=== PATIENT | female | born 1945 | race Caucasian/White ===

== ENCOUNTER 2020-03-07 14:09 | Emergency (ER) | payer MEDICARE ==
[~2020-03-07] VITALS: Ht 157.5 cm; Wt 74.8 kg
[~2020-03-07 14:09] MED LIST: ALBU90OI INH; ALEN70 PO; ASPI81CH PO; CITA20 PO; GABA300 PO; LEVSOD100 PO; LISI5 PO; METF500 PO; METO100ER PO; OMEPRAZOLE MAGN20 MG PO; ONDA8ODT MM; OXYB5 PO; PRAV20 PO; TRAM50 PO; VITAMIN D5000 UNI1 PO
[2020-03-07] MEDS ORDERED: SERT50 PO (14:43)
[2020-03-07] MEDS ORDERED: ATOR40TA PO (14:43)
[2020-03-07] MEDS ORDERED: SYNTHROID137 MCG PO (14:44)
[2020-03-07] MEDS ORDERED: LOSA50 PO (14:44)
[2020-03-07] MEDS ORDERED: METFORMIN HCL500 M2 PO (14:44)
[2020-03-07] MEDS ORDERED: FLUT.05NI (14:45)
[2020-03-07] MEDS ORDERED: OMEPRAZOLE20 MG PO (14:45)
[2020-03-07] MEDS ORDERED: ISOSORBIDE MONO30 MG PO (14:46)
== END 2020-03-07 16:58 | disposition home or self-care (01) ==
LOC: ER 14:09
DX: S00.11XA Contusion of right eyelid and periocular area, initial encounter (principal); E11.9 Type 2 diabetes mellitus without complications; I10 Essential (primary) hypertension; J45.909 Unspecified asthma, uncomplicated; K21.9 Gastro-esophageal reflux disease without esophagitis; Z88.6 Allergy status to analgesic agent; Z88.5 Allergy status to narcotic agent; Z79.899 Other long term (current) drug therapy; Z79.84 Long term (current) use of oral hypoglycemic drugs; Z79.82 Long term (current) use of aspirin; Y04.2XXA Assault by strike against or bumped into by another person, initial encounter
CPT/HCPCS: 70480; 99284-25

== ENCOUNTER → 2021-04-20 | Outpatient (CLI) | payer MEDICARE ==
[~2021-04-20] MED LIST changes: +ATOR40TA PO; +FLUT.05NI; +ISOSORBIDE MONO30 MG PO; +LOSA50 PO; +METFORMIN HCL500 M2 PO; +OMEPRAZOLE20 MG PO; +SERT50 PO; +SYNTHROID137 MCG PO
[2021-04-20 16:36] LABS: BASOPHILS ABSOLUTE AUTO 0.08 K/mm3 (0.00-0.23); BASOPHILS PERCENT AUTO 1 % (0-2); EOSINOPHILS ABSOLUTE AUTO 0.39 K/mm3 (0.00-0.68); EOSINOPHILS PERCENT AUTO 4 % (0-6); Hematocrit 42.4 % (33.0-51.0); Hemoglobin 13.2 g/dL (11.5-16.0); IMMATURE GRAN ABSOLUTE AUTO 0.04 K/mm3 (0.00-0.10); IMMATURE GRAN PERCENT AUTO 0 % (0-1); LYMPHOCYTES ABSOLUTE AUTO 2.86 K/mm3 (0.84-5.20); LYMPHOCYTES PERCENT AUTO 28 % (21-46); MONOCYTES ABSOLUTE AUTO 0.81 K/mm3 (0.16-1.47); MONOCYTES PERCENT AUTO 8 % (4-13); Mean Corpuscular HGB 29.7 pg (26.0-34.0); Mean Corpuscular HGB Conc 31.1 g/dL (31.5-36.5); Mean Corpuscular Volume 96 fL (80-100); Mean Platelet Volume 10.5 fL (9.1-12.4); NEUTROPHILS ABSOLUTE AUTO 6.04 K/mm3 (1.96-9.15); NEUTROPHILS PERCENT AUTO 59 % (41-73); Platelet Count 273 K/mm3 (150-400); RDW Coefficient Variation 15.1 % (11.7-14.2); RDW Standard Deviation 52.9 fL (35.1-46.3); Red Blood Cell Count 4.44 M/mm3 (3.80-5.20); White Blood Cell Count 10.22 K/mm3 (4.00-11.30)
[2021-04-20 17:04] LABS: Albumin, Blood 3.2 g/dL (3.4-5.0); Albumin/Globulin Ratio 0.8 (0.8-1.8); Bilirubin, Total 0.5 mg/dL (0.1-1.0); Bun/Creatinine Ratio 15.5 (12.0-20.0); Creatinine, Blood 1.55 mg/dL (0.40-1.00); Globulin, Blood 4.2 g/dL (2.2-4.0); Potassium, Blood 4.8 mmol/L (3.5-5.5); Total Protein, Blood 7.4 g/dL (6.4-8.2)
[2021-04-20 17:08] LABS: Thyroid Stimulating Hormone 62.5 uIU/mL (0.360-4.800)
== END | disposition home or self-care (01) ==
LOC: LAB SHORT 12:20
PROVIDERS: Family Medicine
DX: C51.9 Malignant neoplasm of vulva, unspecified (principal); E03.9 Hypothyroidism, unspecified; R22.42 Localized swelling, mass and lump, left lower limb; R23.8 Other skin changes
CPT/HCPCS: 80053; 84443; 85025; 87070; 87075; 87205

== ENCOUNTER → 2021-04-28 | Outpatient (CLI) | payer MEDICARE ==
[2021-04-28 19:24] LABS: Bun/Creatinine Ratio 26.9 (12.0-20.0); Calcium, Blood 9.4 mg/dL (8.5-10.1); Creatinine, Blood 1.45 mg/dL (0.40-1.00); Potassium, Blood 4.8 mmol/L (3.5-5.5)
== END ==
LOC: LAB SHORT 17:45
PROVIDERS: Student in an Organized Health Care Education/Training Program
DX: R79.89 Other specified abnormal findings of blood chemistry (principal); R35.0 Frequency of micturition
CPT/HCPCS: 80048; 87086

== ENCOUNTER 2021-04-30 12:32 | Emergency (ER) | payer MEDICARE ==
[~2021-04-30] VITALS: Ht 160 cm; Wt 80.7 kg
== END 2021-04-30 15:35 | disposition home or self-care (01) ==
LOC: ER 12:32
DX: Z47.89 Encounter for other orthopedic aftercare (principal); Z88.5 Allergy status to narcotic agent; Z88.6 Allergy status to analgesic agent; Z79.82 Long term (current) use of aspirin; Z79.899 Other long term (current) drug therapy; E11.9 Type 2 diabetes mellitus without complications; I10 Essential (primary) hypertension; K21.9 Gastro-esophageal reflux disease without esophagitis
CPT/HCPCS: 99282

== ENCOUNTER → 2022-12-07 | Outpatient (CLI) | payer MEDICARE, OTHER | END | disposition home or self-care (01) | LOC: LAB 12:00 → LAB SHORT 12:00 | DX: R30.0 Dysuria (principal) | CPT/HCPCS: 87086 ==

== ENCOUNTER → 2023-12-09 | Outpatient (CLI) | payer MEDICARE, OTHER ==
[2023-12-09 17:44] LABS: Bacterial Vaginosis PCR Negative (NEGATIVE); Candida glabrata-krusei, PCR NOT DETECTED (NOT DETECT)
[2023-12-09 18:25] LABS: Candida Group, PCR DETECTED (NOT DETECT)
[2023-12-12 14:10] LABS: HSV 1 SUBTYPE BY PCR Not Detected; HSV 2 SUBTYPE BY PCR Not Detected; HSV SUBTYPE SOURCE VAGINAL
== END ==
LOC: LAB 14:48 → LAB SHORT 14:48
PROVIDERS: Physician Assistant
DX: R30.0 Dysuria (principal)
CPT/HCPCS: 87077; 87086; 87186; 87481; 87529; 87661; 87801

== ENCOUNTER → 2024-01-30 | Outpatient (CLI) | payer MEDICARE, OTHER ==
[2024-01-30 17:46] LABS: BASOPHILS ABSOLUTE AUTO 0.04 K/mm3 (0.00-0.23); BASOPHILS PERCENT AUTO 1 % (0-2); EOSINOPHILS ABSOLUTE AUTO 0.22 K/mm3 (0.00-0.68); EOSINOPHILS PERCENT AUTO 3 % (0-6); Hematocrit 37.9 % (33.0-51.0); Hemoglobin 11.7 g/dL (11.5-16.0); IMMATURE GRAN ABSOLUTE AUTO 0.02 K/mm3 (0.00-0.10); IMMATURE GRAN PERCENT AUTO 0 % (0-1); LYMPHOCYTES ABSOLUTE AUTO 1.99 K/mm3 (0.84-5.20); LYMPHOCYTES PERCENT AUTO 29 % (21-46); MONOCYTES ABSOLUTE AUTO 0.48 K/mm3 (0.16-1.47); MONOCYTES PERCENT AUTO 7 % (4-13); Mean Corpuscular HGB 29.8 pg (26.0-34.0); Mean Corpuscular HGB Conc 30.9 g/dL (31.5-36.5); Mean Corpuscular Volume 97 fL (80-100); Mean Platelet Volume 10.5 fL (9.1-12.4); NEUTROPHILS ABSOLUTE AUTO 4.06 K/mm3 (1.96-9.15); NEUTROPHILS PERCENT AUTO 60 % (41-73); Platelet Count 187 K/mm3 (150-400); RDW Coefficient Variation 14.3 % (11.7-14.2); RDW Standard Deviation 50.9 fL (35.1-46.3); Red Blood Cell Count 3.92 M/mm3 (3.80-5.20); White Blood Cell Count 6.81 K/mm3 (4.00-11.30)
[2024-01-30 17:50] LABS: Creatinine, Urine Random 57.7 mg/dL (27.00-270.00)
[2024-01-30 17:52] LABS: Microalb/Creat Ratio UR, Rand 68.458 mg/g (0.000-30.000); Microalbumin, Random Urine 39.5 mg/L (0.000-20.000)
[2024-01-30 18:44] LABS: Alanine Aminotransfer (ALT/SGP 26 U/L (12-78); Albumin, Blood 3.6 g/dL (3.4-5.0); Alk Phos 89 U/L (50-136); Anion Gap 11 mmol/L (3-11); Aspartate Aminotrans (AST/SGOT 20 U/L (12-37); Bilirubin, Total 0.3 mg/dL (0.1-1.0); Blood Urea Nitrogen 42 mg/dL (8-24); Bun/Creatinine Ratio 37.8 (12.0-20.0); CHOL/HDL RATIO 2.5; CO2, Blood 25 mmol/L (21-32); Calcium, Blood 9.2 mg/dL (8.5-10.1); Chloride, Blood 112 mmol/L (98-108); Cholesterol 164 mg/dL (50-200); Creatinine, Blood 1.11 mg/dL (0.40-1.00); Globulin, Blood 3.5 g/dL (2.2-4.0); Glomerular Filtration Rate 51 (60-); Glucose, Blood 98 mg/dL (70-99); HDL Cholesterol 66 mg/dL (>39); LDL/HDL RATIO 1.2; Low Density Lipoprotein Chol 77 mg/dL (0-110); Potassium, Blood 4.9 mmol/L (3.5-5.5); Sodium, Blood 143 mmol/L (136-145); Total Protein, Blood 7.1 g/dL (6.4-8.2); Triglycerides 107 mg/dL (30-160); Uric Acid, Blood 5.8 mg/dL (2.6-6.0); Very Low Density Lipoprot Chol 21 mg/dL (6-32)
[2024-01-30 18:49] LABS: Thyroid Stimulating Hormone 0.687 uIU/mL (0.360-4.800)
== END | disposition home or self-care (01) ==
LOC: LAB 15:06 → LAB SHORT 15:06
PROVIDERS: Family Medicine
DX: E11.9 Type 2 diabetes mellitus without complications (principal); Z79.899 Other long term (current) drug therapy
CPT/HCPCS: 80053; 80061; 82043; 82306; 82570; 84443; 84550; 85025

== ENCOUNTER → 2024-04-12 | Outpatient (CLI) | payer MEDICARE, OTHER | LOC: LAB 16:22 → LAB SHORT 16:22 | DX: R30.0 Dysuria (principal) | CPT/HCPCS: 87086 ==

== ENCOUNTER 2024-12-26 03:33 | Day surgery (SDC) | payer MEDICARE, OTHER ==
[2024-12-26] MEDS ORDERED: Lidocaine HCl 4% Cream 5 GM ONE (13:44)
== END 2024-12-26 23:00 | disposition home or self-care (01) ==
LOC: WOUND 03:33
DX: S31.40XA Unspecified open wound of vagina and vulva, initial encounter (principal); C51.9 Malignant neoplasm of vulva, unspecified; E11.9 Type 2 diabetes mellitus without complications; I10 Essential (primary) hypertension; J45.909 Unspecified asthma, uncomplicated; Z88.5 Allergy status to narcotic agent; Y84.2 Radiological procedure and radiotherapy as the cause of abnormal reaction of the patient, or of later complication, without mention of misadventure at the time of the procedure
CPT/HCPCS: A9270; G0463